=== PATIENT | female | born 1990 | race Caucasian/White ===

== ENCOUNTER 2021-03-22 17:51 | Emergency (ER) | payer SELFPAY ==
[2021-03-22 21:20] VITALS: BP 129/86
== END 2021-03-22 21:33 | disposition home or self-care (01) | DRG 948 ==
LOC: ED 17:51
DX: R53.83 Other fatigue (principal); N28.89 Other specified disorders of kidney and ureter; Z20.822 Contact with and (suspected) exposure to COVID-19